=== PATIENT | female | born 1980 | race Caucasian/White ===

== ENCOUNTER 2017-12-09 12:46 | Outpatient (CLI) | END 2017-12-09 16:05 | disposition home or self-care (01) ==

== ENCOUNTER 2018-01-18 12:59 | Outpatient (CLI) | END 2018-01-18 14:55 | disposition home or self-care (01) ==

== ENCOUNTER 2018-01-22 13:45 | Outpatient (CLI) | END 2018-01-22 16:15 | disposition home or self-care (01) ==

== ENCOUNTER → 2018-01-28 12:59 | Inpatient (IN) | END | disposition home or self-care (01) | DRG 775 ==

== ENCOUNTER 2018-11-03 21:05 | Emergency (ER) | payer MEDICAID ==
[~2018-11-03] VITALS: Ht 157.5 cm; Wt 91.6 kg
[~2018-11-03 21:05] MED LIST: IBUP-1542 PO; ONDA4TAB13 PO
[2018-11-03 21:16] VITALS: Ht 157.5 cm; Wt 91.6 kg
[2018-11-03] MEDS ORDERED: METOCLOPRAMIDE 10 MG INJ IV STA (22:02)
[2018-11-03] MEDS ORDERED: SOD CHLORIDE 0.9% 2,000 ML IV STA (22:02)
[2018-11-03] MEDS ORDERED: FAMOTIDINE 20 MG INJ IV ONE (22:30)
[2018-11-03] MEDS ORDERED: ONDANSETRON 4 MG INJ IV STA (23:14)
[2018-11-04] MEDS ORDERED: ONDA8TAB14 PO (00:29)
--- NOTE | 2018-11-04 00:32 | ERD ---
ER Documentation Chief Complaint Chief Complaint n/v preg x 10 weeks HPI 38-year-old female presents with nausea vomiting since early . She is approximately 10 weeks by dates. She denies vaginal bleeding or lower abdominal pain. She has intermittent epigastric pain. She is having vomiting despite Reglan. Her primary doctor or OB is Dr. Perez. She is a G6 para 5. ROS All systems reviewed and are negative except as per history of present illness. Medications Home Meds Active Scripts Ondansetron (Ondansetron Odt) 8 Mg Tab.rapdis, 8 MG PO Q6H PRN for NAUSEA AND/OR VOMITING, #10 TAB Prov:ALEJANDRO GORDON MD 11/04/18 Ibuprofen* (Ibuprofen*) 600 Mg Tablet, 600 MG PO Q6, #60 TAB 0 Refills Prov:RODO WANG MD 01/27/18 Reported Medications Ondansetron Hcl* (Zofran*) 4 Mg Tab, 4 MG PO Q4H PRN for NAUSEA AND OR VOMITING, TAB 01/25/18 Allergies Allergies: Coded Allergies: No Known Allergies (Verified Allergy, Unknown, 05/12/13) PMhx/Soc Medical and Surgical Hx: pt denies Medical Hx History of Surgery: Yes (APPENDECTOMY ) Anesthesia Reaction: No Hx Neurological Disorder: No Hx Respiratory Disorders: No Hx Cardiac Disorders: No Hx Psychiatric Problems: No Hx Miscellaneous Medical Probl: Yes (ANXIETY) Hx Alcohol Use: No Hx Substance Use: No Hx Tobacco Use: No FmHx Family History: No diabetes, No coronary disease, No other Physical Exam Vitals Vital Signs Date Temp Pulse Resp B/P (MAP) Pulse Ox O2 O2 Flow FiO2 Time Delivery Rate 11/03/18 99.6 137 20 137/70 96 21:16 (92) Physical Exam Const: No acute distress Head: Atraumatic Eyes: Normal Conjunctiva ENT: Normal External Ears, Nose and Mouth. Neck: Full range of motion. No meningismus. Resp: Clear to auscultation bilaterally Cardio: Regular rate and rhythm, no murmurs Abd: Soft, non tender, non distended. Normal bowel sounds Skin: No petechiae or rashes Back: No midline or flank tenderness Ext: No cyanosis, or edema Neur: Awake and alert Psych: Normal Mood and Affect Result Diagram: 11/03/18 2200 11/03/18 220 Results 24 hrs Laboratory Tests Test 11/03/18 22:00 11/03/18 22:06 White Blood Count 16.8 10^3/ul Red Blood Count 4.30 10^6/ul Hemoglobin 11.8 g/dl Hematocrit 36.5 % Mean Corpuscular Volume 84.9 fl Mean Corpuscular Hemoglobin 27.4 pg Mean Corpuscular Hemoglobin Concent 32.3 g/dl Red Cell Distribution Width 15.6 % Platelet Count 293 10^3/UL Mean Platelet Volume 9.1 fl Immature Granulocytes % 0.400 % Neutrophils % 80.6 % Lymphocytes % 13.1 % Monocytes % 5.4 % Eosinophils % 0.1 % Basophils % 0.4 % Nucleated Red Blood Cells % 0.0 /100WBC Immature Granulocytes # 0.070 10^3/ul Neutrophils # 13.6 10^3/ul Lymphocytes # 2.2 10^3/ul Monocytes # 0.9 10^3/ul Eosinophils # 0.0 10^3/ul Basophils # 0.1 10^3/ul Nucleated Red Blood Cells # 0.0 10^3/ul Sodium Level 139 mmol/L Potassium Level 3.8 mmol/L Chloride Level 105 mmol/L Carbon Dioxide Level 24 mmol/L Anion Gap 10 Blood Urea Nitrogen 12 mg/dl Creatinine 0.59 mg/dl Est Glomerular Filtrat Rate mL/min > 60 mL/min Glucose Level 119 mg/dl Calcium Level 9.5 mg/dl Total Bilirubin 0.6 mg/dl Direct Bilirubin 0.00 mg/dl Indirect Bilirubin 0.6 mg/dl Aspartate Amino Transf (AST/SGOT) 15 IU/L Alanine Aminotransferase (ALT/SGPT) 13 IU/L Alkaline Phosphatase 87 IU/L Total Protein 7.8 g/dl Albumin 4.2 g/dl Globulin 3.60 g/dl Albumin/Globulin Ratio 1.16 Lipase 244 U/L Urine Color LAKE Urine Clarity CLOUDY Urine pH 6.0 Urine Specific [place] 1.027 Urine Ketones 2+ mg/dL Urine Nitrite NEGATIVE mg/dL Urine Bilirubin NEGATIVE mg/dL Urine Urobilinogen 1+ mg/dL Urine Leukocyte Esterase NEGATIVE Elias/ul Urine Microscopic RBC 2 /HPF Urine Microscopic WBC 5 /HPF Urine Squamous Epithelial Cells MODERATE /HPF Urine Bacteria FEW /HPF Urine Mucus MANY /HPF Urine Hemoglobin NEGATIVE mg/dL Urine Glucose NEGATIVE mg/dL Urine Total Protein NEGATIVE mg/dl Current Medications Medications Dose Sig/Edenilson Start Time Status Last (Trade) Ordered Route PRN Stop Time Admin Dose Reason Admin Sodium 2,000 ml @ Q2H STAT 11/03/18 DC 11/03/18 Chloride 1,000 mls/hr IV 22:02 22:13 11/04/18 00:01 10 mg ONCE STAT 11/03/18 DC 11/03/18 Metoclopramid IV 22:02 22:13 e HCl 11/03/18 22:03 (Reglan) Famotidine 20 mg ONCE ONCE 11/03/18 DC 11/03/18 (Pepcid Iv) IV 22:30 22:13 11/03/18 22:31 Ondansetron 4 mg ONCE STAT 11/03/18 DC 11/03/18 HCl (Zofran IV 23:14 23:32 Inj) 11/03/18 23:15 Procedures/MDM Patient presents with intermittent vomiting since early . She is other yeboah well-appearing. Shared abdominal exam is reassuring. She has had an ultrasound shows intrauterine by report. She was given 2 L normal saline IV, Reglan 10 mg IV. She has persistent nausea vomiting x1 nonbilious nonbloody. She was given Zofran 4 mill grams IV and had resolution of vomiting and felt much better after observation treatment. Urine shows ketones without significant additional acute abnormalities. She has leukocytosis mild anemia. She has no current signs or symptoms of acute abdomen or appendicitis suggesting likely stress response this because of leukocytosis. Patient presents with signs and symptoms of likely hyperemesis without signs of acute abdomen, o bstruction, has no signs or symptoms to suggest ectopic , complications of . Will treat with continuation of Zofran at home, recommendations for primary care follow-up and return precautions. The patient was stable with no new complaints during the ER course. Clinically, there is no current evidence to suggest meningitis, sepsis, acute abdomen, pneumonia, stroke, acute coronary syndrome, pulmonary embolism, aortic dissection or any other emergent condition appearing to require further evaluation or hospitalization. Patient counseled regarding my diagnostic impression and care plan. Prior to discharge all questions answered. Pt agrees with treatment plan and understands strict return precautions. Pt is instructed to follow up with primary care provider within 24- 48 hours. Precautionary instructions provided including instructions to return to the ER if not improving or for any worsening or changing symptoms or concerns. Disclaimer: Inadvertent spelling and grammatical errors are likely due to EHR/dictation software use and do not reflect on the overall quality of patient care. Also, please note that the electronic time recorded on this note does not necessarily reflect the actual time of the patient encounter. Departure Diagnosis: Primary Impression: Nausea and vomiting Vomiting type: unspecified Vomiting Intractability: unspecified Qualified Codes: R11.2 - Nausea with vomiting, unspecified Condition: Stable Patient Instructions: Hyperemesis Gravidarum (Severe Morning Sickness) Referrals: NO PRIMARY,CARE PHYSICIAN (PCP) Additional Instructions: Drink plenty of fluids at home. Recheck with OB or return for any bleeding, fevers, pain, vomiting despite treatment, new or worsening symptoms. ALEJANDRO GORDON MD November 04, 2018 00:32
[2018-11-04 00:59] VITALS: BP 116/63; PULSE 85; RESP 17
== END 2018-11-04 00:59 | disposition home or self-care (01) ==
LOC: FTE 21:05
DX: O21.9 Vomiting of pregnancy, unspecified (principal); Z3A.10 10 weeks gestation of pregnancy
CPT/HCPCS: 36415; 80053; 81001; 83690; 85025; 96374; 96375; J2405; J2765; J7030; Z7502; Z7610

== ENCOUNTER 2018-12-07 12:26 | Emergency (ER) | payer MEDICAID ==
[~2018-12-07] VITALS: Ht 154.9 cm; Wt 88.4 kg
[~2018-12-07 12:26] MED LIST changes: +ONDA8TAB14 PO
[2018-12-07 12:29] VITALS: Ht 154.9 cm; Wt 88.4 kg
[2018-12-07] MEDS ORDERED: ACETAMINOPHEN 325 MG TAB PO STA (13:47)
[2018-12-07] MEDS ORDERED: SOD CHLORIDE 0.9% 1,000 ML IV STA (13:47)
[2018-12-07] MEDS ORDERED: METOCLOPRAMIDE 10 MG INJ IV ONE (14:00)
[2018-12-07] MEDS ORDERED: MECLIZINE 12.5 MG TAB PO ONE (17:00)
[2018-12-07] MEDS ORDERED: NITROFURANTOIN (SR) 100 MG CAP PO ONE (17:00)
[2018-12-07] MEDS ORDERED: SOD CHLORIDE 0.9% 1,000 ML IV ONE (17:00)
[2018-12-07 17:57] VITALS: BP 116/64; PULSE 90; RESP 18
[2018-12-07] MEDS ORDERED: MECL12.574 PO (18:03)
[2018-12-07] MEDS ORDERED: NITR-58 PO (18:03)
--- NOTE | 2018-12-07 18:28 | ERD ---
ER Documentation Chief Complaint Chief Complaint [facility] from [facility] for hyperemesis x 2 days. ap cramping HPI This is a 38-year-old female patient who presents emergency room with complaint of vomiting x2 days. She has history of gestational diabetes and hyperemesis gravidarum. Denies fever, diarrhea, vaginal bleeding. c/o RLQ, LLQ, suprapubic pain. G8 A2 P5 Referred from Erika Zambrano @ [facility] All systems reviewed and are negative except as per history of present illness. Medications Home Meds Active Scripts Meclizine Hcl* (Antivert*) 12.5 Mg Tab, 25 MG PO Q6H PRN for NAUSEA for 10 Days, #20 TAB Prov:NANCY COSTA NP 12/07/18 Nitrofurantoin Monohyd Macrocr* (Macrobid*) 100 Mg Capsr, 100 MG PO BID for cystitis for 3 Days, #6 CAP Prov:NANCY COSTA NP 12/07/18 Ondansetron (Ondansetron Odt) 8 Mg Tab.rapdis, 8 MG PO Q6H PRN for NAUSEA AND/OR VOMITING, #10 TAB Prov:ALEJANDRO GORDON MD 11/04/18 Ibuprofen* (Ibuprofen*) 600 Mg Tablet, 600 MG PO Q6, #60 TAB 0 Refills Prov:RODO WANG MD 01/27/18 Reported Medications Ondansetron Hcl* (Zofran*) 4 Mg Tab, 4 MG PO Q4H PRN for NAUSEA AND OR VOMITING, TAB 01/25/18 Allergies Allergies: Coded Allergies: No Known Allergies (Verified Allergy, Unknown, 05/12/13) PMhx/Soc History of Surgery: Yes (APPENDECTOMY ) Anesthesia Reaction: No Hx Neurological Disorder: No Hx Respiratory Disorders: No Hx Cardiac Disorders: No Hx Psychiatric Problems: No Hx Miscellaneous Medical Probl: Yes (ANXIETY) Hx Alcohol Use: No Hx Substance Use: No Hx Tobacco Use: No Smoking Status: Never smoker FmHx Family History: No diabetes, No coronary disease, No other Physical Exam Vitals Vital Signs Date Temp Pulse Resp B/P (MAP) Pulse Ox O2 O2 Flow FiO2 Time Delivery Rate 12/07/18 98.8 90 18 116/64 97 Room Air 17:57 (81) 12/07/18 93 18 117/66 97 Room Air 16:33 (83) 12/07/18 98.8 102 18 158/72 97 12:29 (100) Physical Exam Const: No acute distress Head: Atraumatic Eyes: Normal Conjunctiva ENT: Normal External Ears, Nose and Mouth. Neck: Full range of motion. No meningismus. Resp: Clear to auscultation bilaterally Cardio: Regular rate and rhythm, no murmurs Abd: Soft, non tender, non distended. Normal bowel sounds Skin: No petechiae or rashes Back: No midline or flank tenderness Ext: No cyanosis, or edema Neur: Awake and alert Psych: Normal Mood and Affect Result Diagram: 12/07/18 1400 12/07/18 1400 Results 24 hrs Laboratory Tests Test 12/07/18 14:00 12/07/18 14:01 White Blood Count 16.2 10^3/ul Red Blood Count 4.19 10^6/ul Hemoglobin 11.7 g/dl Hematocrit 36.3 % Mean Corpuscular Volume 86.6 fl Mean Corpuscular Hemoglobin 27.9 pg Mean Corpuscular Hemoglobin Concent 32.2 g/dl Red Cell Distribution Width 14.8 % Platelet Count 300 10^3/UL Mean Platelet Volume 8.8 fl Immature Granulocytes % 0.500 % Neutrophils % 78.8 % Lymphocytes % 13.2 % Monocytes % 6.8 % Eosinophils % 0.4 % Basophils % 0.3 % Nucleated Red Blood Cells % 0.0 /100WBC Immature Granulocytes # 0.080 10^3/ul Neutrophils # 12.7 10^3/ul Lymphocytes # 2.1 10^3/ul Monocytes # 1.1 10^3/ul Eosinophils # 0.1 10^3/ul Basophils # 0.1 10^3/ul Nucleated Red Blood Cells # 0.0 10^3/ul Sodium Level 137 mmol/L Potassium Level 4.0 mmol/L Chloride Level 106 mmol/L Carbon Dioxide Level 23 mmol/L Anion Gap 8 Blood Urea Nitrogen 10 mg/dl Creatinine 0.53 mg/dl Est Glomerular Filtrat Rate mL/min > 60 mL/min Glucose Level 97 mg/dl Calcium Level 9.1 mg/dl Total Bilirubin 0.3 mg/dl Direct Bilirubin 0.00 mg/dl Indirect Bilirubin 0.3 mg/dl Aspartate Amino Transf (AST/SGOT) 13 IU/L Alanine Aminotransferase (ALT/SGPT) 9 IU/L Alkaline Phosphatase 84 IU/L Total Protein 7.8 g/dl Albumin 4.0 g/dl Globulin 3.80 g/dl Albumin/Globulin Ratio 1.05 Urine Color LAKE Urine Clarity CLOUDY Urine pH 6.0 Urine Specific [place] 1.029 Urine Ketones NEGATIVE mg/dL Urine Nitrite NEGATIVE mg/dL Urine Bilirubin NEGATIVE mg/dL Urine Urobilinogen 1+ mg/dL Urine Leukocyte Esterase 1+ Elias/ul Urine Microscopic RBC 15 /HPF Urine Microscopic WBC 6 /HPF Urine Squamous Epithelial Cells MANY /HPF Urine Bacteria FEW /HPF Urine Mucus MODERATE /HPF Urine Hemoglobin NEGATIVE mg/dL Urine Glucose 1+ mg/dL Urine Total Protein NEGATIVE mg/dl Beta HCG, Quantitative 29279.0 mIU/ml Current Medications Medications Dose Sig/Edenilson Start Time Status Last (Trade) Ordered Route PRN Stop Time Admin Dose Reason Admin Sodium 1,000 ml @ Q1H STAT 12/07/18 DC 12/07/18 Chloride 1,000 mls/hr IV 13:47 14:09 12/07/18 14:46 650 mg ONCE STAT 12/07/18 DC 12/07/18 Acetaminophen PO 13:47 14:09 (Tylenol 12/07/18 13:54 Tab) 10 mg ONCE ONCE 12/07/18 DC 12/07/18 Metoclopramid IV 14:00 14:09 e HCl 12/07/18 14:01 (Reglan) Meclizine 25 mg ONCE ONCE 12/07/18 DC 12/07/18 HCl PO 17:00 16:43 (Antivert) 12/07/18 17:01 Sodium 1,000 ml @ Q1H ONCE 12/07/18 DC 12/07/18 Chloride 1,000 mls/hr IV 17:00 16:44 12/07/18 17:59 100 mg ONCE ONCE 12/07/18 DC 12/07/18 Nitrofurantoi PO 17:00 16:43 n 12/07/18 17:01 Macrocrystals (Macrobid) Procedures/MDM PROCEDURES/MDM DIAGNOSTIC IMAGING: Read by radiologist. Abdomen ultrasound IMPRESSION: Unremarkable limited abdominal ultrasound. Obstetric ultrasound IMPRESSION: 1. Single live intrauterine gestation of 15 weeks 3 days gestational age by ultrasound dates. 2. The estimated date of delivery is May 28, 2019. LAB INTERPRETATION: Blood work reveals leukocytosis, slight anemia, no electrolyte disturbance, no nephropathy, normal liver function. Urinalysis with positive leukocyte esterase, RBCs, WBCs, although results are only slightly positive, given patient's presentation and serum leukocytosis,she will be treated for a UTI. Urine sent for culture. MDM: Patient presented to the emergency room with concern for hyperemesis gravidarum, dehydration, abdominal pain. Patient's was evaluated and ultrasound indicates normal gestational IUP of 15 weeks 3 days, heart rate of 159 bpm. Abdominal ultrasound negative for appendicitis or other intra-abdominal abnormality. Patient was hydrated, provided with Reglan, p.o. challenge with cup of water failed. At that time Dr. Babb, OB on-call was consulted. She did not feel patient needed admission at this time as she was maintaining her electrolytes and vital signs were stable. Recommended dry foods, Macrobid for the UTI, follow-up with her OB on Monday. Patient was provided with additional bag of normal saline and meclizine. Upon reevaluation patient states her nausea had resolved and subsequent p.o. challenge did not result in vomiting. Patient and state they feel comfortable managing nausea at home at this time. Differential includes early normal , appendicitis, acute surgical abdomen, additional concerning signs or symptoms or conditions. The patient was stable with no new complaints during the ER course. Clinically, there is no current evidence to suggest meningitis, sepsis, acute abdomen, pneumonia, stroke, acute coronary syndrome, pulmonary embolism, aortic dissection or any other emergent condition appearing to require further evaluation or hospitalization. -Medications: Normal saline, Reglan, Macrobid, meclizine Patient tolerated medication well with no adverse reactions. -Consultation: Dr. Babb, OB on-call DISPOSITION and PLAN: Prior to discharge all questions answered. Pt agrees with treatment plan and understands strict return precautions. Pt is instructed to follow up with primary care provider on Monday. Precautionary instructions provided including instructions to return to the ER if not improving or for any worsening or changing symptoms or concerns. Departure Diagnosis: Primary Impression: Hyperemesis gravidarum before end of 22 week gestation with ca... Condition: Stable Patient Instructions: Hyperemesis Gravidarum (Severe Morning Sickness) Referrals: ERIKA ZAMBRANO Additional Instructions: Thank you very much for allowing us to participate in your care. Your health and safety is our top priority at [facility]. Call your primary care doctor TOMORROW for an appointment during the next 2-4 days and bring all the information and medications prescribed. Have prescriptions filled and follow precisely the directions on the label. If the symptoms get worse and your provider is unavailable, return to the Emergency Department immediately. FOLLOW-UP WITH YOUR OB PROVIDER ON MONDAY. CONTINUE TO USE YOUR REGLAN PRESCRIBED BY YOUR OB PROVIDER, IF NAUSEA IS PERSISTENT YOU MAY ADD USE OF MECLIZINE. TRY DRY CRACKERS FIRST THING IN THE MORNING, [facility] JUSTEN CAN HELP WITH NAUSEA WELL [facility] CHEWS. COMPLETE ENTIRE COURSE OF ANTIBIOTICS. STAY WELL-HYDRATED 1 TO 2 L OF WATER PER DAY. RETURN TO THE EMERGENCY ROOM WITH ANY WORSENING OF VOMITING, DIARRHEA, FEVER, ABDOMINAL PAIN. NANCY COSTA NP Dec 07, 2018 18:27
== END 2018-12-07 18:30 | disposition home or self-care (01) ==
LOC: FTE 12:26
DX: O21.0 Mild hyperemesis gravidarum (principal); R10.2 Pelvic and perineal pain; Z3A.15 15 weeks gestation of pregnancy
CPT/HCPCS: 36415; 76705; 76805; 80053; 81001; 84702; 85025; 86900; 86901; 87086; 96361; 96374; J2765; J7030; Z7502; Z7610